=== PATIENT | male | born 1980 | race Two or more races ===

== ENCOUNTER 2024-04-26 02:24 | Emergency (ER) | payer OTHER ==
[~2024-04-26] VITALS: Ht 157.5 cm; Wt 54.4 kg
[2024-04-26] MEDS ORDERED: NEOMYCIN/POLYMYXIN B/HYDROCORT 20 DR/ML BOTTLE OT STA (03:23)
[2024-04-26] MEDS ORDERED: BUTALB/ACETAMINOPHEN/CAFFEINE 1 TAB TABLET PO STA (03:23)
[2024-04-26] MEDS ORDERED: BUTALB/ACETAMINOPHEN/CAFFEINE 1 TAB TABLET PO ONE (03:26)
[2024-04-26] MEDS ORDERED: NEOMYCIN/POLYMYXIN B/HYDROCORT 20 DR/ML BOTTLE OT ONE (03:27)
[2024-04-26] MEDS ORDERED: CORTISPORIN EAR10 M1 OPHT (03:29)
[2024-04-26] MEDS ORDERED: ESGIC 50-325-41 EACH PO (03:29)
== END 2024-04-26 03:33 | disposition home or self-care (01) ==
LOC: ER 02:24
DX: H92.02 Otalgia, left ear (principal); R51.9 Headache, unspecified; Z88.6 Allergy status to analgesic agent